=== PATIENT | male | born 2000 | race Hispanic/Latino ===

== ENCOUNTER 2019-05-26 11:54 | Emergency (ER) | payer SELFPAY ==
[2019-05-26 12:24] LABS: Absolute Lymphocytes (CBC) 2.1 K/uL (0.7-4.9); Basophils % 1.2 % (0-1.3); Hematocrit 42.4 % (39.6-49.0); Lymphocytes % 32.9 % (15.3-44.8)
[2019-05-26 12:41] LABS: BUN Blood Urea Nitrogen 16 mg/dL (7-18); Bicarbonate 25 mmol/L (21-32); Glucose Level 116 mg/dL (74-106); Potassium 3.6 mmol/L (3.5-5.1); Sodium Level 143 mmol/L (136-145)
--- NOTE | 2019-05-26 12:46 | RAD REPORT ---
EXAM DESCRIPTION: CT - Head C Spine Cap Daylin Adame - 05/26/2019 12:30 pm CLINICAL HISTORY: Trauma, head and neck injury. Chest, abdomen and pelvis pain. fall from ladder, left temporal injury COMPARISON: <Comparisons> TECHNIQUE: CT head without contrast. CT cervical spine without contrast with coronal and sagittal reformatted images. CT chest, abdomen and pelvis with IV contrast (approximately 100 mL nonionic IV contrast) with deleon l and sagittal reformatted images of the spine. All CT scans are performed using dose optimization technique as appropriate and may include automated exposure control or mA/KV adjustment according to patient size. FINDINGS: CT HEAD WITHOUT CONTRAST: No intracranial hemorrhage, hydrocephalus or extra-axial fluid collection. No areas of brain edema o r midline shift. The paranasal sinuses and mastoids are clear. The calvarium is intact. CT CERVICAL SPINE WITHOUT CONTRAST: No fracture or subluxation. The prevertebral soft tissues are normal in thickness. CT CHEST, ABDOMEN, PELVIS WITH CONTRAST: The lungs are clear.No pneumothorax or pericardial/pleural fluid. No evidence of intra-abdominal visceral injury, free fluid or free air. No concerning pelvic findings. No fractures. IMPRESSION: Negative for acute traumatic findings.
[2019-05-26] MEDS ORDERED: DERMABOND SKIN ADHESIVE TOP ONE (13:28)
[2019-05-26] MEDS ORDERED: ACETAMINOPHEN 325 MG TABLET ONE (14:44)
--- NOTE | 2019-05-26 15:01 | EDPHYS ---
Physician Documentation [facility] Name: Kyle Harris Age: 19 yrs Sex: Male : 2000 Arrival Date: 05/26/2019 Time: 11:57 Bed 6 Private MD: ED Physician Abbe Urrutia HPI: 05/26 13:33 This 19 yrs old Male presents to ER via Wheelchair with complaints of Fall rn Injury. 13:33 Details of fall: The patient fell from a height, from a ladder, approximately 15 feet. rn Onset: The symptoms/episode began/occurred just prior to arrival. Associated injuries: The patient sustained injury to the head. Severity of symptoms: At their worst the symptoms were mild, in the emergency department the symptoms are unchanged. The patient has not experienced similar symptoms in the past. The patient has not recently seen a physician. Denies LOC, reports only injury to head, remembers all events, not on blood thinners, no medical problems.. Historical: - Allergies: 11:57 No Known Allergies; aa5 - Home Meds: 11:57 None [Active]; aa5 - PMHx: 11:57 None; aa5 - PSHx: 11:57 None; aa5 - Immunization history:: Last tetanus immunization: unknown. - Social history:: Smoking status: Patient/guardian denies using tobacco. - Ebola Screening: : No symptoms or risks identified at this time. - Family history:: not pertinent. - Hospitalizations: : No recent hospitalization is reported. ROS: 13:33 Constitutional: Negative for fever, chills, and weight loss, Eyes: Negative for injury, rn pain, redness, and discharge, ENT: Negative for injury, pain, and discharge, Neck: Negative for injury, pain, and swelling, Cardiovascular: Negative for chest pain, palpitations, and edema, Respiratory: Negative for shortness of breath, cough, wheezing, and pleuritic chest pain, Abdomen/GI: Negative for abdominal pain, nausea, vomiting, diarrhea, and constipation, Back: Negative for injury and pain, MS/Extremity: Negative for injury and deformity, Skin: + scalp laceration Neuro: Negative for headache, weakness, numbness, tingling, and seizure. Exam: 13:32 Constitutional: This is a well developed, well nourished patient who is awake, alert, rn and in no acute distress. Head/Face: 2 small subcentimeter superficial lacerations left temporal/pre-auricular region, small venous bleeding Eyes: Pupils equal round and reactive to light, extra-ocular motions intact. Lids and lashes normal. Conjunctiva and sclera are non-icteric and not injected. Cornea within normal limits. Periorbital areas with no swelling, redness, or edema. ENT: No oral trauma Neck: Trachea midline, no thyromegaly or masses palpated, and no cervical lymphadenopathy. Supple, full range of motion without nuchal rigidity, or vertebral point tenderness. No Meningismus. Cardiovascular: Regular rate and rhythm with a normal S1 and S2. No gallops, murmurs, or rubs. Normal PMI, no JVD. No pulse deficits. Respiratory: Lungs have equal breath sounds bilaterally, clear to auscultation and percussion. No rales, rhonchi or wheezes noted. No increased work of breathing, no retractions or nasal flaring. Abdomen/GI: Soft, non-tender, with normal bowel sounds. No distension or tympany. No guarding or rebound. No evidence of tenderness throughout. Back: No spinal tenderness. No costovertebral tenderness. Full range of motion. MS/ Extremity: Pulses equal, no cyanosis. Neurovascular intact. Full, normal range of motion. Equal circumference. Neuro: Awake and alert, GCS 15, oriented to person, place, time, and situation. Cranial nerves II-XII grossly intact. Motor strength 5/5 in all extremities. Sensory grossly intact. Cerebellar exam normal. Normal gait. Vital Signs: 11:58 BP 125 / 82; Pulse 60; Resp 16 S; Temp 98.6(O); Pulse Ox 100% on R/A; Weight 61.23 kg aa5 (R); Pain 10/10; 12:45 BP 121 / 78; Pulse 52; Resp 16; Temp 98.4; Pulse Ox 98% ; sv 13:30 BP 117 / 79; Pulse 52; Resp 16; Pulse Ox 100% ; sv [place] Coma Score: 11:58 Eye Response: spontaneous(4). Verbal Response: oriented(5). Motor Response: obeys aa5 commands(6). Total: 15. 12:45 Eye Response: spontaneous(4). Verbal Response: oriented(5). Motor Response: obeys sv commands(6). Total: 15. Trauma Score (Adult): 11:58 Eye Response: spontaneous(1); Verbal Response: oriented(1); Motor Response: obeys aa5 commands(2); Systolic BP: > 89 mm Hg(4); Respiratory Rate: 10 to 29 per min(4); [place] Score: 15; Trauma Score: 12 12:45 Eye Response: spontaneous(1); Verbal Response: oriented(1); Motor Response: obeys sv commands(2); Systolic BP: > 89 mm Hg(4); Respiratory Rate: 10 to 29 per min(4); [place] Score: 15; Trauma Score: 12 Laceration: 13:33 Wound Repair of 0.5cm ( 0.2in ) subcutaneous laceration to left rastafarian. Distal rn neuro/vascular/tendon intact. Wound prep: Simple cleansing by me. Skin closed with 1 thin layer Adhesive skin closure using Dermabond. Patient tolerated well. MDM: 11:57 Patient medically screened. rn 13:33 Differential diagnosis: abrasion, closed head injury, contusion, fracture, laceration. rn Data reviewed: vital signs, nurses notes, lab test result(s), radiologic studies, and as a result, I will discharge patient. Counseling: I had a detailed discussion with the patient and/or guardian regarding: the historical points, exam findings, and any diagnostic results supporting the discharge/admit diagnosis, lab results, radiology results, the need for outpatient follow up, to return to the emergency department if symptoms worsen or persist or if there are any questions or concerns that arise at home. Response to treatment: the patient's symptoms have markedly improved after treatment, the patient's condition has returned to base line, the patient is now symptom free, and as a result, I will continue to observe the patient. Special discussion: I discussed with the patient/guardian in detail that at this point there is no indication for admission to the hospital. It is understood, however, that if the symptoms persist or worsen the patient needs to return immediately for re-evaluation. 13:49 ED course: Pt asymptomatic, told him will observe for a while given head injury from rn height, states feels fine, normal neuro exam, neg ct head and rest of traumagram.. 05/26 11:57 Order name: Basic Metabolic Panel; Complete Time: 13:23 rn 05/26 11:57 Order name: CBC with Diff; Complete Time: 13:23 rn 05/26 11:57 Order name: CT Traumagram (Head C Spine CAP W Con) rn 05/26 11:57 Order name: Creatinine for Radiology; Complete Time: 13:23 rn 05/26 11:57 Order name: Type And Screen; Complete Time: 13:36 rn 05/26 11:57 Order name: Labs collected and sent; Complete Time: 14:06 rn Administered Medications: 14:44 Drug: Tylenol 650 mg Route: PO; sg Disposition: 05/26/19 15:00 Discharged to Home. Impression: Superficial injury of head. - Condition is Stable. - Discharge Instructions: Tissue Adhesive Wound Care, Head Injury, Adult. - Work release form, Family Work Release, Medication Reconciliation Form, Thank You Letter, Antibiotic Education, Prescription Opioid Use form. - Follow up: Private Physician; When: As needed; Reason: Recheck today's complaints, Re-evaluation by your physician. - Problem is new. - Symptoms have improved. Signatures: Dispatcher [employer] EDMS Armando Saravia RN RN sg Abbe Urrutia MD MD rn Calderon, Audri, RN RN aa5 Corrections: (The following items were deleted from the chart) 15:21 15:00 05/26/2019 15:00 Discharged to Home. Impression: Superficial injury of head. sg Condition is Stable. Forms are Medication Reconciliation Form, Thank You Letter, Antibiotic Education, Prescription Opioid Use. Follow up: Private Physician; When: As needed; Reason: Recheck today's complaints, Re-evaluation by your physician. Problem is new. Symptoms have improved. rn
--- NOTE | 2019-05-26 15:01 | ER ---
Nurse's Notes [facility] Name: Kyle Harris Age: 19 yrs Sex: Male : 2000 Arrival Date: 05/26/2019 Time: 11:57 Bed 6 Private MD: Diagnosis: Superficial injury of head Presentation: 05/26 11:57 Presenting complaint: Patient states: fall from 20 ft ladder , pt reports he landed on aa5 left side of head/face/ear onto concrete. Denies LOC. Pt appears drowsy during triage but easy to awaken to verbal stimuli, A\T\O x 4. Pt c/o bleeding from left ear and pain to left ear and left side of face. 11:57 Care prior to arrival: None. Mechanism of Injury: Fall from ladder. Trauma event aa5 details: Injury occurred in the [facility] [place], Injury occurred: work Injury occurred: May 26, 2019. 11:57 Acuity: HUBERT 2 aa5 11:57 Method Of Arrival: Wheelchair aa5 11:57 Transition of care: patient was not received from another setting of care. Onset of aa5 symptoms was May 26, 2019. 11:57 Risk Assessment: Do you want to hurt yourself or someone else? Patient reports no aa5 desire to harm self or others. Initial Sepsis Screen: Does the patient meet any 2 criteria? No. Patient's initial sepsis screen is negative. Does the patient have a suspected source of infection? No. Patient's initial sepsis screen is negative. Trauma Activation: Alert Physician: ED Physician; Name: ; Notified At: ; Arrived At: Physician: General Surgeon; Name: ; Notified At: ; Arrived At: Physician: Radiology; Name: ; Notified At: ; Arrived At: Physician: Respiratory; Name: ; Notified At: ; Arrived At: Physician: Lab; Name: ; Notified At: ; Arrived At: Historical: - Allergies: 11:57 No Known Allergies; aa5 - Home Meds: 11:57 None [Active]; aa5 - PMHx: 11:57 None; aa5 - PSHx: 11:57 None; aa5 - Immunization history:: Last tetanus immunization: unknown. - Social history:: Smoking status: Patient/guardian denies using tobacco. - Ebola Screening: : No symptoms or risks identified at this time. - Family history:: not pertinent. - Hospitalizations: : No recent hospitalization is reported. Assessment: 12:00 General: Appears in no apparent distress. well groomed, well developed, well nourished, sg Behavior is calm, cooperative, appropriate for age. Pain: Complains of pain in left ear, left cheek, left yarsanism and left jaw Quality of pain is described as throbbing. Neuro: Level of Consciousness is awake, alert, obeys commands, Oriented to person, place, time, Claim Service Representative are equal bilaterally Moves all extremities. Full function Gait is steady, Speech is normal, Facial symmetry appears normal, Pupils are PERRLA, Reports headache in left parietal area. Cardiovascular: Patient's skin is warm and dry. Chest pain is denied. Respiratory: Airway is patent Respiratory effort is even, unlabored, Respiratory pattern is regular, symmetrical. GI: Abdomen is round non-distended. : No signs and/or symptoms were reported regarding the genitourinary system. EENT: No signs and/or symptoms were reported regarding the EENT system. Derm: Skin is pink, warm \T\ dry. Musculoskeletal: Circulation, motion, and sensation intact. Range of motion: intact in all extremities, Swelling absent. 12:19 Reassessment: Patient appears in no apparent distress at this time. Patient is alert, sg oriented x 3, equal unlabored respirations, skin warm/dry/pink. pt reports feeling drowsy Patient states symptoms have not improved. 14:44 Reassessment: Patient appears in no apparent distress at this time. Patient and/or sg family updated on plan of care and expected duration. Pain level reassessed. Patient is alert, oriented x 3, equal unlabored respirations, skin warm/dry/pink. awaiting dispo orders at this time Patient states feeling better. Vital Signs: 11:58 BP 125 / 82; Pulse 60; Resp 16 S; Temp 98.6(O); Pulse Ox 100% on R/A; Weight 61.23 kg aa5 (R); Pain 10/10; 12:45 BP 121 / 78; Pulse 52; Resp 16; Temp 98.4; Pulse Ox 98% ; sv 13:30 BP 117 / 79; Pulse 52; Resp 16; Pulse Ox 100% ; sv [place] Coma Score: 11:58 Eye Response: spontaneous(4). Verbal Response: oriented(5). Motor Response: obeys aa5 commands(6). Total: 15. 12:45 Eye Response: spontaneous(4). Verbal Response: oriented(5). Motor Response: obeys sv commands(6). Total: 15. Trauma Score (Adult): 11:58 Eye Response: spontaneous(1); Verbal Response: oriented(1); Motor Response: obeys aa5 commands(2); Systolic BP: > 89 mm Hg(4); Respiratory Rate: 10 to 29 per min(4); [place] Score: 15; Trauma Score: 12 12:45 Eye Response: spontaneous(1); Verbal Response: oriented(1); Motor Response: obeys sv commands(2); Systolic BP: > 89 mm Hg(4); Respiratory Rate: 10 to 29 per min(4); [place] Score: 15; Trauma Score: 12 ED Course: 11:57 Patient arrived in ED. mr 11:57 Abbe Urrutia MD is Attending Physician. rn 11:57 Arm band placed on Patient placed in an exam room, on a stretcher. aa5 11:57 Patient has correct armband on for positive identification. Placed in gown. Bed in low aa5 position. Call light in reach. Side rails up X2. 12:00 Patient maintains SpO2 saturation greater than 95% on room air. Thermoregulation: warm aa5 blanket given to patient. 12:03 Armando Saravia, RN is Primary Nurse. sg 12:05 Initial lab(s) drawn, by tn, sent to lab. Inserted saline lock: 18 gauge in right aa5 forearm, using aseptic technique. Blood collected. 12:11 Triage completed. aa5 12:[address] sg Administered Medications: 14:44 Drug: Tylenol 650 mg Route: PO; sg Intake: 11:58 PO: 0ml; Total: 0ml. sv 12:45 PO: 0ml; Total: 0ml. sv Output: 11:58 Urine: 0ml; Total: 0ml. sv 12:45 Urine: 0ml; Total: 0ml. sv Outcome: 15:00 Discharge ordered by . rn 15:21 Patient left the ED. sg Signatures: Janice Mao RN RN sv Gay, Steven, RN RN sg Rivera, Mary mr Urrutia, Abbe, MD MD rn Agrawal, Lizzette, RN RN aa5
== END 2019-05-26 15:21 | disposition home or self-care (01) ==
LOC: ER 11:54
PROC: 0JQ10ZZ Repair Face Subcutaneous Tissue and Fascia, Open Approach (ICD-10-PCS; principal; 2019-05-26)
DX: S01.81XA Laceration without foreign body of other part of head, initial encounter (principal); W11.XXXA Fall on and from ladder, initial encounter; Y93.9 Activity, unspecified; Y92.9 Unspecified place or not applicable
CPT/HCPCS: 36415; 70450; 71260; 72125; 74177; 80048; 85025; 86850; 86900; 86901; 99284; Q9967